=== PATIENT | female | born 1965 | race Caucasian/White ===

== ENCOUNTER 2019-09-04 06:58 | Day surgery (SDC) | payer MEDICAID ==
--- NOTE | 2019-09-03 13:43 | PCM.PREANE ---
Preanesthetic Assessment - Anesthesia/Transfusion/Family Hx Anesthesia History: Prior Anesthesia Without Reaction Family History of Anesthesia Reaction: No Transfusion History: No Prior Transfusion(s) Intubation History: Unknown - Review of Systems Pulmonary: No Symptoms (Former smoker: 16 pack yr history/quit 2013 ETOH:rarely IGLESIA/CPAP), Cough Cardiovascular: No Symptoms (History of HTN, Mitral regurgiation), Palpitations Gastrointestinal: No Symptoms Neurological: No Symptoms (chronic lower pain: 4/10), Numbness (peripheral neuropathy noted:left foot (toes 4/5)) Other: Reports: Easy Bruising, Diabetes (prediabetic), Liver Problems (elevated liver enzymes), Depression, Anxiety - Physical Assessment NPO Status Date: 09/03/19 NPO Status Time: 22:30 Vital Signs: HR:63 Sat:96% B/P:125/66 Resp:16 Temp:96.8 Height: 1.7 m Weight: 122 kg ASA Class: 3 Mental Status: Alert & Oriented x3 Airway Class: Mallampati = 2 Dentition: Reports: Normal Dentition, Caries Thyro-Mental Finger Breadths: 3 Mouth Opening Finger Breadths: 3 ROM/Head Extension: Full Lungs: Clear to Auscultation, Normal Respiratory Effort (harsh breath sounds noted/albuterol nebulizer ordered.) Cardiovascular: Regular Rate, Regular Rhythm, No Murmurs - Lab Values: All labs reviewed and noted and within acceptable ranges to proceed with scheduled procedure. - Imaging/EKG Impressions: EKG: SB rate=49, probable left atrial enlargement CXR: negative - Allergies Allergies/Adverse Reactions: Allergies Allergy/AdvReac Type Severity Reaction Status Date / Time bee venom protein (honey bee) Allergy Other Verified 09/03/19 15:53 Penicillins Allergy Other Verified 09/03/19 15:53 - Anesthesia Plan Pre-Op Medication Ordered: Beta Archna Beta Rachna: Metoprolol Med Last Dose Date: 09/04/19 Med Last Dose Time: 06:00 - Acknowledgements Anesthesia Type Planned: General Anesthesia Pt an Appropriate Candidate for the Planned Anesthesia: Yes Alternatives and Risks of Anesthesia Discussed w Pt/Guardian: Yes Pt/Guardian Understands and Agrees with Anesthesia Plan: Yes PreAnesthesia Questionnaire - HOME MEDS Home Medications: Home Meds DULoxetine [Cymbalta] 60 mg PO DAILY 09/03/19 [History] Diclofenac Sodium [Voltaren 1% Gel] 1 dose TOP BID 09/03/19 [History] Hydrochlorothiazide/Losartan [Hyzaar 50-12.5 MG] 1 tab PO DAILY 09/03/19 [History] Metoprolol Tartrate 50 mg PO DAILY 09/03/19 [History] Milk Thistle 1,000 mg PO DAILY 09/03/19 [History] Pregabalin 150 mg PO DAILY 09/03/19 [History] - CURRENT (IN HOUSE) MEDS Current Meds: Current Medications Lactated Ringer's (Ringers, Lactated) 1,000 mls @ 125 mls/hr IV ASDIRECTED CHANEL Stop: 09/04/19 23:00 Lidocaine/Sodium Bicarbonate (Buffered Lidocaine 1% In Ns 8.4%) 0.25 ml IDERM ONETIME PRN PRN Reason: Prior to IV Start Stop: 09/04/19 18:00 Sodium Chloride (Saline Flush) 10 ml FLUSH ASDIRECTED PRN PRN Reason: Keep Vein Open Stop: 09/04/19 18:00
[2019-09-04] MEDS ORDERED: Lactated Ringers 1,000 ML IV SCH (07:00)
[2019-09-04] MEDS ORDERED: Lidocaine 1%/Sod Bicarbonate in NS 8.4% 1 ML Syringe IDERM PRN (07:00)
[2019-09-04] MEDS ORDERED: Sodium Chloride 0.9% 10 ML Syringe FLUSH PRN (07:00)
[2019-09-04] MEDS ORDERED: Rocuronium 50 MG/5 ML Vial ONE (07:16)
[2019-09-04] MEDS ORDERED: Lidocaine 1% 6 ML ONE (07:16)
[2019-09-04] MEDS ORDERED: Lactated Ringers 1,000 ML ONE ×2 (07:16→10:16)
[2019-09-04] MEDS ORDERED: HYDROmorphone 0.5 MG/0.5 ML Syringe ONE ×4 (07:16→10:37)
[2019-09-04] MEDS ORDERED: Ketorolac 30 MG/ML SDV ONE (07:16)
[2019-09-04] MEDS ORDERED: Dexamethasone 4 MG/ML 5 ML MDV ONE (07:16)
[2019-09-04] MEDS ORDERED: Ondansetron 4 MG/2 ML SDV ONE (07:16)
[2019-09-04] MEDS ORDERED: Propofol 200 MG/20 ML SDV ONE ×2 (07:17→08:01)
[2019-09-04] MEDS ORDERED: Midazolam 1 MG/ML 2 ML SDV ONE (07:17)
[2019-09-04] MEDS ORDERED: fentaNYL 250 MCG/5 ML SDV ONE (07:17)
[2019-09-04] MEDS ORDERED: Clindamycin Phosphate 900 MG in Premix Bag 1 BAG IV ONE (07:30)
[2019-09-04] MEDS ORDERED: Albuterol 0.083% 2.5 MG/3 ML Neb Soln NEB ONE (08:00)
[2019-09-04] MEDS ORDERED: Ondansetron 4 MG/2 ML SDV IVPUSH PRN (08:39)
[2019-09-04] MEDS ORDERED: Midazolam 1 MG/ML 2 ML SDV IVPUSH PRN (08:39)
[2019-09-04] MEDS ORDERED: ePHEDrine 50 MG/ML SDV IVPUSH PRN (08:39)
[2019-09-04] MEDS ORDERED: diphenhydrAMINE 50 MG/ML SDV IVPUSH PRN (08:39)
[2019-09-04] MEDS ORDERED: Albuterol 0.083% 2.5 MG/3 ML Neb Soln NEB PRN (08:39)
[2019-09-04] MEDS: Bupivacaine 0.5% 30 ML SDV ONE ×2 (08:40→09:46)
[2019-09-04] MEDS: Lidocaine 1% 50 ML MDV ONE ×2 (08:40→09:47)
[2019-09-04] MEDS ORDERED: Phenylephrine 1 MG in Sodium Chloride 0.9% 10 ML IV PRN (08:45)
[2019-09-04] MEDS ORDERED: ePHEDrine Sulfate/0.9% NaCl/Pf 25 MG/5 ML SYRINGE IV ONE (08:58)
[2019-09-04] MEDS ORDERED: fentaNYL 100 MCG/2 ML SDV ONE ×2 (10:02→10:25)
[2019-09-04] MEDS ORDERED: hydrALAZINE 20 MG/ML SDV ONE (10:22)
[2019-09-04] MEDS ORDERED: Labetalol 100 MG/20 ML MDV ONE (10:28)
--- NOTE | 2019-09-04 11:03 | PCM.POSTAN ---
POST ANESTHESIA ASSESSMENT - MENTAL STATUS Mental Status: Alert - VITAL SIGNS Vital Signs: Last Vital Signs Temp 97.6 09/04/19 1056 Pulse 80 09/04/19 1056 Resp 13 09/04/19 1056 BP 122/64 09/04/19 1056 Pulse Ox 97% 09/04/19 1056 - RESPIRATORY Respiratory Status: Respiratory Rate WNL, Airway Patent, O2 Saturation Stable, Supplemental Oxygen - CARDIOVASCULAR CV Status: Pulse Rate WNL, Blood Pressure Stable - GASTROINTESTINAL GI Status: No Symptoms - POST OP HYDRATION Hydration Status: Adequate & Stable
[2019-09-04] MEDS: fentaNYL 100 MCG/2 ML SDV IVPUSH PRN ×2 (11:11→11:20)
--- NOTE | 2019-09-04 11:18 | PCM.OPNOTE ---
- General Post-Op/Procedure Note Date of Surgery/Procedure: 09/04/19 Operative Procedure(s): Arthrodesis 1st, 2nd, 3rd Tarsometatarsal joint with autogenous grafts & internal fixation. Pre Op Diagnosis: Painful/Symptomatic Midfoot Arthritis, LEFT. Painful/Symptomatic 1st, 2nd, 3rd TMT joint Arthrosis Post-Op Diagnosis: Same Anesthesia Technique: General LMA Other Anesthesia Type: local anesthetic blockade Primary Surgeon: Bradley Corrales II Anesthesia Provider: Aileen Moseley EBL in mLs: 300 Complications: None Condition: Good Free Text/Narrative:: Patient left the OR for recovery with vital signs stable and vascular status intact, LEFT foot.
--- NOTE | 2019-09-04 12:04 | CR ---
Left foot: 14 fluoroscopic spot views were obtained utilizing C-arm device. Study shows fusion surgery at the tarsometatarsal joints of the first and second digits fluoroscopy time is given as 51.5 seconds. Impression: 1. Procedural study as described above. Diagnostic code #2 This report was dictated in MDT
--- NOTE | 2019-09-04 12:17 | PCM48HPAN ---
Post Anesthesia Note - EVALUATION WITHIN 48HRS OF ANESTHETIC Vital Signs in Normal Range: Yes Patient Participated in Evaluation: Yes Respiratory Function Stable: Yes Airway Patent: Yes Cardiovascular Function Stable: Yes Hydration Status Stable: Yes Pain Control Satisfactory: Yes Nausea and Vomiting Control Satisfactory: Yes Mental Status Recovered: Yes Vital Signs: Last Vital Signs Temp 36.4 C 09/04/19 10:56 Pulse 79 09/04/19 11:39 Resp 20 09/04/19 11:39 BP 111/71 09/04/19 11:39 Pulse Ox 96 09/04/19 11:42
[2019-09-04 13:00] VITALS: BP 115/63; PULSE 72
--- NOTE | 2019-09-05 01:54 | OR ---
DATE OF OPERATION: 09/04/2019 SURGEON: Bradley Corrales II, DPM LOCATION: [facility]. ANESTHESIA: LMA general with local anesthetic block. ANESTHESIA PROVIDER: Aileen Moseley CRNA. HEMOSTASIS: Left pneumatic thigh tourniquet at 350 mmHg pressure for 100 minutes. PREOPERATIVE DIAGNOSIS: Painful and symptomatic arthritis involving the left 1st, 2nd, and 3rd tarsometatarsal joints. POSTOPERATIVE DIAGNOSIS: Painful and symptomatic arthritis involving the left 1st, 2nd, and 3rd tarsometatarsal joints. OPERATION PERFORMED: 1. Arthrodesis, left 1st tarsometatarsal joint with Trephine autogenous bone graft and internal fixation staple. 2. Arthrodesis, 2nd tarsometatarsal joint with Trephine autogenous bone graft, left foot with internal fixation staple. 3. Arthrodesis, 3rd tarsometatarsal joint with Trephine autogenous bone graft, left, with internal fixation staple. DESCRIPTION OF PROCEDURE: Upon arrival and admission to the hospital, the patient was examined and cleared for surgery by the assigned anesthesia provider. IV access was obtained in the preoperative area, after which the patient was brought to the OR, receiving prophylactic antibiotics consisting of 900 mg of clindamycin. The patient was then escorted to the OR via gurney and then transferred to the operating table in the supine position. The patient was given a combination of sedations before being intubated for LMA general anesthesia. The patient was then given a combination of sedations and adequately sedated before receiving 10 mL of 1:1 mixture of 1% lidocaine plain and 0.5% Marcaine plain in the form of local infiltrative block about the operatory sites of the left foot. The left lower extremity was then wrapped with cotton Webril padding at the thigh level and was then secured with a sterile drape and a towel clamp. Left lower extremity was then prepped and draped in the usual aseptic manner. Left lower extremity was then elevated and exsanguinated with the use of Esmarch bandage before inflating the left pneumatic thigh tourniquet to 350 mmHg pressure. The Esmarch bandage was removed and the left lower extremity was placed back to the level of the operating room table. Attention was then first directed over the left 1st tarsometatarsal joint where an approximately 6 cm curvilinear incision was created medial to the extensor hallucis longus tendon. This was a controlled depth skin incision taken down to the level of subcutaneous structures with care taken to retract the vital neurovascular structures within the area as well as to cauterize and/or ligate all superficial bleeders as deemed necessary. Continuous soft tissue dissection was taken down to the level of the periosteal structures and in between the tibialis anterior and posterior tendons. At the level of the 1st tarsometatarsal joint, intraoperative fluoroscopy AP views demonstrated where the joint was and it was then dissected free from its soft tissue attachments. A guide pin for a 12.5 Trephine bone plug was then placed center in the 1st TMT joint and 20 mm of bone plug was removed. A lateral incision was then created approximately 6 cm in length on the lateral inferior aspect of the left heel and a 4.5 Trephine calcaneus bone plug was removed and was then tapped into place at the evacuated hole on the dorsal of the 1st tarsometatarsal joint. A 20 mm Elite staple was then utilized and placed across the trephined bone plug hole to prevent extravasation of the bone graft. The wound was then copiously lavaged with sterile saline solution and an another incision was created overlying the 2nd and 3rd tarsometatarsal region. This was a controlled depth skin incision taken down to the level of the subcutaneous structures with care taken to retract the vital neurovascular structures within the area as well as to cauterize or ligate all superficial bleeders as deemed necessary. At the level of the 2nd tarsometatarsal joint, intraoperative fluoroscopy views demonstrated where another 12.5 Trephine bone plug would be removed while a second 14.5 Trephine calcaneus bone plug would be harvested and tapped into place at this level. Another 20/20 Elite dynamic compression staple was utilized to prevent extravasation of the graft from the bone plug hole. An additional 4.0, 2.5 cannulated short thread cancellous screw was then selected from the Kylie set and was utilized to recreate the Lisfranc ligament from the medial aspect of the medial cuneiform to the base of the 2nd metatarsal. Intraoperative fluoroscopy views demonstrated adequate placement and reduction of this insight to bone grafting of the left foot. Dressings were then consisted of Betadine-soaked Adaptic gauze, 4 x 4 gauze, Cecilia, and an Tray bandage. Prior to placement of the bandages, the deep structures were reapproximated with 3-0 Vicryl and the subcuticular level was reapproximated with 4-0 Vicryl while the skin was reapproximated with skin darya. The patient appeared to tolerate the procedure and anesthesia well and left the OR for recovery with her vital signs being stable and vascular status intact digits 1 through 5 with no apparent complications. In recovery, the patient received written and oral postoperative instructions as well as postoperative pain medication. The patient will ambulate nonweightbearing with crutches and/or knee scooter after a posterior splint was placed about the left lower extremity. ESTIMATED BLOOD LOSS: 300 mL. COMPLICATIONS: There were no apparent or obvious complications. MMODAL /[id number]
== END 2019-09-04 12:40 | disposition home or self-care (01) ==
LOC: JD.SDS 06:58
PROVIDERS: ATTEND Podiatrist Foot & Ankle Surgery
DX: M19.072 Primary osteoarthritis, left ankle and foot (principal); I10 Essential (primary) hypertension; G60.9 Hereditary and idiopathic neuropathy, unspecified; Z88.0 Allergy status to penicillin; Z91.030 Bee allergy status; Z87.891 Personal history of nicotine dependence; Z79.899 Other long term (current) drug therapy
CPT/HCPCS: 28730; 76000; 82962; 94640; J0171; J0360; J1100; J1170; J1885; J2001; J2704; J3010; J3490; J7120; 01480; C1713; C1769; J2250; J2405; J2710